=== PATIENT | male | born 1960 | race Caucasian/White ===

== ENCOUNTER 2017-06-11 15:21 | Emergency (ER) | payer OTHER ==
[~2017-06-11] VITALS: Ht 172.7 cm; Wt 68.0 kg
[~2017-06-11 15:21] MED LIST: ? BP MED PO; ADVAIR 100/501 E1 INH; ADVAIR DISKUS 21 DSK INH; AMILORIDE HCL5 MG PO; AMILORIDE HYDROC5 MG PO; ASPIR LOW81 MG PO; ATARAX,VISTARIL50 MG PO; B-1100 MG PO; CARDIZEM CD300 MG PO; CATAPRES0.2 MG PO; CATAPRES0.3 MG PO; CELEBREX200 MG PO; CELEXA20 MG PO; CHLORDIAZEPOXID10 M2 PO; CIPRO500 MG PO; COREG3.125 MG PO; CYCLOBENZAPRINE10 MG PO; DELTASONE20 MG; DIAMOX250 MG PO; DIFLUCAN100 MG PO; DILTIAZEM ER240 M1 PO; DOXYCYCLINE100 M3 PO; FOLIC ACID1 MG PO; HYDROCODONE BIT1 T11 PO; IBU-200200 MG PO; K + POTASSIUM20 MEQ PO; LASIX20 MG; LISINOPRIL20 MG PO; LOPRESSOR100 M1 PO; LOPRESSOR100 MG PO; LOPRESSOR50 MG PO; LOVASTATIN20 MG PO; MELOXICAM7.5 MG PO; MOBIC7.5 MG PO; MOTRIN 600 MG E4 TAB PO; MULTIPLE VITAMI1 TAB PO; NATURE'S BLEND F1 MG PO; O2 NAS; OXYCODONE5 M1 PO; OXYGEN NAS; PERCOCET 325 MG1 TA2 PO; PRAVACHOL20 MG PO; PROAIR HFA0.09 MG/AC IH; PROTONIX40 MG PO; PROVENTIL 3 ML3 ML IH; PROVENTIL0.09 MG/AC IH; SIMVASTATIN20 MG PO; SINGULAIR10 MG PO; SPIRIVA -- 3018 MCG INH; SPIRIVA -- 3018 MCG PO; SPIRIVA18 MCG PO; THERA TABS1 TAB PO; VICODIN 500 MG-1 TAB PO; VITAMIN B-11 TAB PO; VITAMIN B1100 MG PO; VITAMIN PO; ZESTRIL40 MG PO; ZOFRAN 4 MG ED2 TAB PO; [UNRECOGNIZED DRUG - REMARK] PO
[2017-06-11 16:01] LABS: URINE AMPHETAMINES < 1000 (1000ng/ml); URINE BARBITURATES < 200 (200ng/ml); URINE BENZODIAZEPINES < 200 (200ng/ml); URINE CANNABINOIDS (THC) < 50 (50ng/ml); URINE COCAINE < 300 (300ng/ml); URINE METHADONE < 300 (300ng/ml); URINE OPIATES < 300 (300ng/ml)
[2017-06-11 16:02] LABS: URINE PHENCYCLIDINE < 25 (25ng/ml)
[2017-06-11 16:13] LABS: HEMATOCRIT 30.7 % (42.0-52.0); HEMOGLOBIN 10.9 g/dl (14.0-18.0); MEAN CELL VOLUME 100.7 fl (80.0-94.0); MEAN CORPUSCULAR HGB 35.7 pg (27.0-31.0); MEAN CORPUSCULAR HGB CONC 35.5 g/dl (33.0-37.0); MEAN PLATELET VOLUME 12.5 fl (9.6-12.3); RED BLOOD COUNT 3.05 10*6/uL (4.50-5.90); RED CELL DISTRI WIDTH 12.7 % (0-14.5); WHITE BLOOD COUNT 3.5 10*3/uL (4.8-10.8)
[2017-06-11 16:21] LABS: ACT PARTIAL THROMBO TIME 29.2 SECONDS (20.8-31.5); INTERNATIONAL NORM RATIO 1.1 (2.0-3.5)
[2017-06-11 16:25] LABS: BILIRUBIN NEGATIVE (NEGATIVE); BLOOD 2+ (NEGATIVE); CLARITY SL CLOUDY (CLEAR); COLOR YELLOW (YELLOW); GLUCOSE NEGATIVE (NEGATIVE); KETONE NEGATIVE (NEGATIVE); LEUKO ESTERASE NEGATIVE (NEGATIVE); NITRITE NEGATIVE (NEGATIVE); PH 6.5 (5.0-9.0); SPECIFIC GRAVITY <= 1.005 (1.005-1.030)
[2017-06-11 16:35] LABS: BACTERIA 1+
[2017-06-11 16:38] LABS: ALBUMIN 2.2 gm/dl (3.1-4.5); ALKALINE PHOSPHATASE 103 U/L (45-117); BUN 3 mg/dl (7-24); CHLORIDE 94 mmol/L (98-107); CPK 81 U/L (39-308); CREATININE 0.61 mg/dL (0.70-1.30); LIPASE 117 U/L (73-393); POTASSIUM 3.6 mmol/L (3.5-5.1); SGOT/AST 108 IU/L (3-35); SGPT/ALT 51 U/L (12-78); SODIUM 125 mmol/L (136-145); TOTAL PROTEIN 6.3 gm/dL (6.4-8.2); TROPONIN I 0.016 ng/ml (<0.045)
[2017-06-11 16:40] LABS: PLATELET SUFFICIENCY LOW (NORMAL); TOTAL CELLS COUNTED 100 #CELLS
[2017-06-11 16:42] LABS: BURR CELLS MODERATE
[2017-06-11 16:43] LABS: PLATELET COUNT AUTOMATED 29 10*3/uL (130-400)
== END 2017-06-11 18:42 | disposition short-term general hospital (02) ==
LOC: ED 15:21
PROVIDERS: Physician Assistant
DX: S72.492A Other fracture of lower end of left femur, initial encounter for closed fracture (principal); F10.20 Alcohol dependence, uncomplicated; E87.1 Hypo-osmolality and hyponatremia; D69.6 Thrombocytopenia, unspecified; F17.200 Nicotine dependence, unspecified, uncomplicated; Z88.8 Allergy status to other drugs, medicaments and biological substances; Z79.82 Long term (current) use of aspirin; Z79.899 Other long term (current) drug therapy; W17.89XA Other fall from one level to another, initial encounter; Y93.89 Activity, other specified; Y92.89 Other specified places as the place of occurrence of the external cause; Y99.8 Other external cause status